=== PATIENT | male | born 1965 | race Two or more races ===

== ENCOUNTER 2022-05-13 17:55 | Inpatient (IN) | payer MEDICAID ==
[~2022-05-13] VITALS: Ht 167.6 cm; Wt 82.6 kg
[~2022-05-13 17:55] MED LIST: ACET-73 GT; ATEN25TA GT; BISA10SU8 RC; CHLO15MO2 MM; DOCU-270 GT; GUAI600T53 GT; HEPA500013 IJ; LEVE1000 GT; MAGN400O6 GT; METO-295 GT; NA P133E RC; SERT50TA GT
--- NOTE | 2022-05-13 18:06 | NUR ---
PRANAV FROM [facility], PER REPORT, "FEVER" +COVID TODAY. REQUESTING ANTI-VIRAL. TO ER BED 6, HOOKED TO MONITOR, NURSE EPIDEMIOLOGIST AT BEDSIDE. PATIENT WITH TRACH ON VENT WITH SETTINGS AC/VC, FiO2 40%, VT 550, RATE 14, PEEP 5. WITH O2 SAT OF 98%. COOLING MEASURES DONE. DR PARSONS AT BEDSIDE
--- NOTE | 2022-05-13 18:20 | NUR ---
RT Received pt with settings provided by transport RT. Current settings tolerated well. No SOB noted. Ambu bag+ back up trach at bedside. Will continue to monitor
--- NOTE | 2022-05-13 18:21 | NUR ---
MOVE SHEET SUBMITTED.
--- NOTE | 2022-05-13 18:22 | NUR ---
COVID SWAB DONE AND SENT TO LAB
[2022-05-13] MEDS ORDERED: ALBU2.5V13 IH (18:25)
[2022-05-13] MEDS ORDERED: ACET325T53 GT (18:25)
[2022-05-13] MEDS ORDERED: IPRA0.2S49 IH (18:25)
[2022-05-13] MEDS ORDERED: OMEG-166 GT (18:25)
[2022-05-13] MEDS ORDERED: LEVE500T20 GT (18:25)
[2022-05-13] MEDS ORDERED: SENN-261 GT (18:25)
[2022-05-13] MEDS ORDERED: CEFT1FRO2 IV (18:25)
[2022-05-13] MEDS ORDERED: BACL10TA GT (18:25)
[2022-05-13] MEDS ORDERED: ACETAMINOPHEN 650 MG/SUPP.RECT RC ONE ×2 (18:33→19:00)
--- NOTE | 2022-05-13 18:36 | NUR ---
TEACHER EMOTIONALLY IMPAIRED AT BEDSIDE
--- NOTE | 2022-05-13 18:45 | NUR ---
RT pt received on mechanical vent with current settings. AC 14 550 40% +5. trach, shiley 6 xlt. ambu bag at bedside. alarms on and audible. vent plugged in to red outlet. minimal secretions suctioned via trach. no sob. no resp distress.
--- NOTE | 2022-05-13 19:32 | NUR ---
RECEIVED REPORT FROM LUCÍA MANZANARES FOR JOSE
[2022-05-13 19:34] LABS: CALCIUM, SERUM 8.8 mg/dL (8.5-10.1); CREATININE 0.7 mg/dL (0.6-1.3); POTASSIUM 3.7 mmol/L (3.5-5.1)
[2022-05-13 19:46] LABS: ALBUMIN 2.6 g/dL (3.4-5.0); BILIRUBIN,TOTAL 0.2 mg/dL (0.2-1.0); TOTAL PROTEIN, SERUM 7.4 g/dL (6.4-8.2)
--- NOTE | 2022-05-13 19:46 | NUR ---
SPOKE WITH DR. DELACRUZ PT TO BE ADMITTED TO [facility].
--- NOTE | 2022-05-13 19:47 | NUR ---
[facility] CALLED SORTING COWS WORKER PAGED.
[2022-05-13 19:52] LABS: BASOPHILS % (AUTO) 0.3 % (0.0-2.0); EOSINOPHILS % (AUTO) 1.7 % (0.0-6.0); HEMATOCRIT 35 % (39-51); HEMOGLOBIN 11.5 g/dL (13.5-17.5); LYMPHOCYTES # (AUTO) 2.3 K/uL (0.8-4.8); LYMPHOCYTES % (AUTO) 16.8 % (20.0-44.0); MEAN CORPUSCULAR HGB CONC 33 g/dl (31.0-36.0); MEAN CORPUSCULAR VOLUME 84 fL (80-96); MONOCYTES # (AUTO) 1.6 K/uL (0.1-1.30); MONOCYTES % (AUTO) 11.7 % (2.0-12.0); NEUTROPHILS # (AUTO) 9.3 K/uL (1.8-8.9); NEUTROPHILS % (AUTO) 69.5 % (43.0-81.0); PLATELET COUNT (AUTO) 216 K/uL (150-450); RED BLOOD CELL COUNT(AUTO) 4.18 MIL/uL (4.5-6.0); WHITE BLOOD COUNT (AUTO) 13.4 K/uL (4.3-11.0)
[2022-05-13 19:53] LABS: C-REACTIVE PROTEIN 69.7 mg/dL (0.0-0.9)
--- NOTE | 2022-05-13 22:06 | NUR ---
ROOM 120
--- NOTE | 2022-05-13 22:12 | NUR ---
REPORT GIVEN TO LEIGHTON BAR FOR JOSE
[2022-05-13] MEDS ORDERED: ACETAMINOPHEN 650 MG/20.3 ML UDC GT PRN (22:30)
[2022-05-13] MEDS ORDERED: ALBUTEROL SULFATE 8 GM HFA.AER.AD IH PRN (22:30)
--- NOTE | 2022-05-13 23:50 | NUR ---
RT pt transferred to floor with no complications. ambu bag on stand by. vent plugged in to red outlet. alarms on and audible. no sob. no resp distress.
--- NOTE | 2022-05-13 23:50 | NUR ---
PT TRANSPORTED TO ROOM 120 ON NASCAR DRIVER PER ACLS IN STABLE CONDITION
[2022-05-14] MEDS ORDERED: AZITHROMYCIN 500 MG VIAL ONE (00:38)
[2022-05-14] MEDS: AZITHROMYCIN 500 MG in IV D5W 250 ML IV SCH ×2 (00:42→23:20)
[2022-05-14 01:00] VITALS: BP 105/67
--- NOTE | 2022-05-14 01:30 | NUR ---
RN Note Received a 56 year old male from ER. Patient is non-verbal, withdraws from touch. No distress noted. Patient is on ventilator with trach. Shiley 8, Vent settings: AC 14, TV 550, FIO2 40%, PEEP 5. Tolerating well O2 Saturation of 99 percent. HOB elevated 35 degrees. Skin is warm an dry to touch. Noted with peg tube, Clamped, no residual. site is dry, dressing intact. new order of indwelling perla catheter. noted and carried out with charge nurse. Right ac 20g PIV, patent and intact. Skin assessment done, wound pictures filed in chart. assisted with turning and repositioning. Bed low, in locked position, Call light within reach. Will continue to monitor.
[2022-05-14] MEDS ORDERED: MAGNESIUM HYDROXIDE 30 ML UDC GT PRN (03:00)
[2022-05-14] MEDS ORDERED: JEVITY 1.2 CAL 1,000 ML BOTTLE GT PRN (03:30)
[2022-05-14 04:00] VITALS: BP 102/83
[2022-05-14] MEDS ORDERED: CEFTRIAXONE 1 G in IV D5W 50 ML IV SCH (04:30)
[2022-05-14] MEDS ORDERED: ACETAMINOPHEN 160 MG/5 ML GT PRN (05:00)
--- NOTE | 2022-05-14 05:00 | NUR ---
RN note noted patient tugging on indwelling perla catheter. Noted with pink tinged urine. Noted with small amount of bright red blood oozing from penile gland. Switched perla statlock to left thigh. Patient unable to reach at this time. Cintia Aware.
[2022-05-14] MEDS: BACLOFEN (10 MG) 10 MG TABLET GT SCH ×3 (05:08→20:23)
[2022-05-14] MEDS ORDERED: ACETAMINOPHEN 650 MG/20.3 ML UDC GT PRN (05:30)
[2022-05-14] MEDS ORDERED: CEFTRIAXONE 1 G VIAL ONE (05:38)
[2022-05-14 06:53] LABS: BASOPHILS % (AUTO) 0.3 % (0.0-2.0); EOSINOPHILS % (AUTO) 2.4 % (0.0-6.0); HEMATOCRIT 33 % (39-51); LYMPHOCYTES # (AUTO) 1.7 K/uL (0.8-4.8); LYMPHOCYTES % (AUTO) 14.5 % (20.0-44.0); MEAN CORPUSCULAR HGB CONC 33 g/dl (31.0-36.0); MEAN CORPUSCULAR VOLUME 83 fL (80-96); MONOCYTES # (AUTO) 1.3 K/uL (0.1-1.30); MONOCYTES % (AUTO) 10.4 % (2.0-12.0); NEUTROPHILS # (AUTO) 8.7 K/uL (1.8-8.9); NEUTROPHILS % (AUTO) 72.4 % (43.0-81.0); PLATELET COUNT (AUTO) 213 K/uL (150-450); RED BLOOD CELL COUNT(AUTO) 4.04 MIL/uL (4.5-6.0)
[2022-05-14 07:00] LABS: ALBUMIN 2.5 g/dL (3.4-5.0); BILIRUBIN,TOTAL 0.3 mg/dL (0.2-1.0); CALCIUM, SERUM 8.6 mg/dL (8.5-10.1); CREATININE 0.5 mg/dL (0.6-1.3); POTASSIUM 3.5 mmol/L (3.5-5.1); TOTAL PROTEIN, SERUM 7.5 g/dL (6.4-8.2)
[2022-05-14 07:01] LABS: COLOR,URINE ORANGE (YELLOW); UGLUCOSE NEGATIVE (NEGATIVE)
[2022-05-14 07:02] LABS: BILIRUBIN,URINE MODERATE (NEGATIVE)
[2022-05-14 07:03] LABS: LEUKOCYTE ESTERASE ,URINE LARGE (NEGATIVE); NITRITE, URINE NEGATIVE (NEGATIVE); PH,URINE 6.5 (5.0-8.0); PROTEIN,URINE 4+ mg/dl (NEGATIVE); UROBILINOGEN,URINE 0.2 EU/dL (0.2)
[2022-05-14 07:31] LABS: BACTERIA,URINE None seen /HPF (None Seen); RBC,URINE TOO NUMEROUS TO COUN /HPF (0-2); SQUAMOUS EPITHELIAL CELL,UR None Seen /HPF (None Seen); WBC,URINE TOO NUMEROUS TO COUN /HPF (0-3)
--- NOTE | 2022-05-14 07:32 | NUR ---
RN OPENING NOTE RECEIVED PATIENT RESTING IN BED ON MECHANICAL VENTILATOR TACH #8, AC 14, TV 550, FiO2 40% AND PEEP 5. ON TELE MONITOR, MOURA CATH NOTED, G TUBE RUNNING, IV ACCESS ON R AC 20G. PENDING WOUND CARE CONSULT. SAFETY MEASURES IN PLACE.
[2022-05-14 08:00] VITALS: BP 98/62
[2022-05-14] MEDS: CHLORHEXIDINE GLUCONATE 15 ML UDC MM SCH ×2 (08:46→20:23)
[2022-05-14] MEDS: LEVETIRACETAM SOL (5 ML) 100 MG/ML UDC GT SCH ×2 (08:46→20:23)
[2022-05-14] MEDS: SERTRALINE HCL 50 MG TABLET GT SCH (08:47)
[2022-05-14] MEDS: SENNOSIDES 8.6 MG TABLET GT SCH (08:47)
[2022-05-14] MEDS: IPRATROPIUM NEB FS 0.5 MG/2.5 ML AMPUL.NEB IH SCH ×3 (09:05→19:18)
[2022-05-14] MEDS: ALBUTEROL FS 2.5 MG/0.5 ML VIAL.NEB IH SCH ×3 (09:05→19:18)
--- NOTE | 2022-05-14 09:59 | NUR ---
RN NOTE PATIENTS TUBE FEEDING INCREASED TO 65MLS/HR PER STATION INSTALLER.
[2022-05-14] MEDS: ENOXAPARIN SODIUM 40 MG/0.4 ML DISP.SYRIN SQ SCH (10:38)
--- NOTE | 2022-05-14 10:50 | NUR ---
PATIENT FOUND ON THE VENT WITH TRACH AJUSTED. BACK UP TRACH IN [place] NO DISTRESS NOTED . PATIENT TOLERATING SETTINGS WELL. Addendum: 05/14/22 at 1055 by TAURUS DELA CRUZ RT Amended: Links added.
--- NOTE | 2022-05-14 11:49 | NUR ---
TX IS ON HOLD FROM NOW DUE TO PATIENT BEEN COVID POSITIVE. Addendum: 05/14/22 at 1154 by TAURUS DELA CRUZ RT Amended: Links added.
[2022-05-14 12:00] VITALS: BP 95/53
--- NOTE | 2022-05-14 14:39 | NUR ---
PATIENT IS DISCHARGED. Addendum: 05/14/22 at 1439 by TAURUS DELA CRUZ RT Amended: Links added. Addendum: 05/14/22 at 1515 by TAURUS DELA CRUZ RT MISTAKE PATIENT IS COVID POSISTIVE NOT DISCHARGE
--- NOTE | 2022-05-14 15:16 | NUR ---
PATIENT IS COVID POSITIVE
[2022-05-14 16:00] VITALS: BP 99/63
--- NOTE | 2022-05-14 18:43 | NUR ---
RN CLOSING NOTE RECEIVED PATIENT RESTING IN BED ON MECHANICAL VENTILATOR TACH #8, AC 14, TV 550, FiO2 40% AND PEEP 5. NO CURRENT SIGNS OF DIASTRESS OR SOB.ON TELE MONITOR, MOURA CATH NOTED, G TUBE RUNNING JEVITY 65 MLS/HR, IV ACCESS ON R AC 20G SL. PENDING WOUND CARE CONSULT. SAFETY MEASURES IN PLACE. WILL ENDORSE TO NIGHT NURSE FOR JOSE.
--- NOTE | 2022-05-14 19:18 | NUR ---
rt note no aerosol tx given pt positive for covid.
--- NOTE | 2022-05-14 19:21 | NUR ---
RT NOTE PT RECVD ON ORDERED AC VENT SETTINGS AND MANPREET WELL. TRACH IS PATENT AND SECURED. SUCTION PRN, NEB TX NOT GIVEN PT POSITIVE FOR COVID. VENT PLUGGED INTO RED OUTLET WITH ALARMS ON AND AUDIBLE. NO S/S OF SOB OR RESPIRATORY DISTRESS NOTED.
--- NOTE | 2022-05-14 19:30 | NUR ---
RN OPENING NOTES RECEIVED PT IN BED, ASLEEP, OPENS EYES TO VERBAL AND TACTILE STIMULI. AOx1, OBTUNDED. ON MECHANICAL VENT AND TOLERATING WELL. NO SOB NOTED. NO S/SX OF RESPIRATORY DISTRESS NOTED. IV ACCESS IN RAC #18 G. IV IS INTACT, PATENT, AND FLUSHING WELL. G-TUBE IN PLACE RUNNING JEVITY @ 65 ML/HR. MOURA-CATHETER IN PLACE DRAINING YELLOW WITH BLOOD-TINGED URINE. SAFETY PRECAUTIONS IN PLACE: BED IN LOWEST, LOCKED POSITION, SIDERAILS UPx2, AND BRAKES ON. TABLE AND CALL LIGHT WITHIN REACH. WILL CONTINUE TO MONITOR.
[2022-05-14 20:00] VITALS: BP 130/79
[2022-05-14] MEDS ORDERED: MEROPENEM 500 MG VIAL IV ONE (20:19)
[2022-05-14] MEDS: MEROPENEM 500 MG in IV NS 0.9% 50 ML IV SCH (20:23)
[2022-05-14] MEDS: JEVITY 1.2 CAL 1,000 ML BOTTLE GT PRN (20:31)
[2022-05-15] VITALS: BP 137/66
[2022-05-15] MEDS: ALBUTEROL FS 2.5 MG/0.5 ML VIAL.NEB IH SCH ×5 (01:30→19:30)
[2022-05-15] MEDS: IPRATROPIUM NEB FS 0.5 MG/2.5 ML AMPUL.NEB IH SCH ×5 (01:30→19:30)
[2022-05-15] MEDS ORDERED: MEROPENEM 500 MG VIAL IV ONE (04:25)
[2022-05-15] MEDS: BACLOFEN (10 MG) 10 MG TABLET GT SCH ×3 (04:29→21:43)
[2022-05-15] MEDS: MEROPENEM 500 MG in IV NS 0.9% 50 ML IV SCH (04:30)
[2022-05-15 06:41] LABS: BASOPHILS % (AUTO) 0.3 % (0.0-2.0); EOSINOPHILS % (AUTO) 3.1 % (0.0-6.0); HEMATOCRIT 35 % (39-51); HEMOGLOBIN 11.3 g/dL (13.5-17.5); LYMPHOCYTES # (AUTO) 1.7 K/uL (0.8-4.8); MEAN CORPUSCULAR HGB CONC 32 g/dl (31.0-36.0); MEAN CORPUSCULAR VOLUME 84 fL (80-96); MONOCYTES # (AUTO) 0.7 K/uL (0.1-1.30); NEUTROPHILS # (AUTO) 6.2 K/uL (1.8-8.9); NEUTROPHILS % (AUTO) 69.6 % (43.0-81.0); PLATELET COUNT (AUTO) 224 K/uL (150-450); RED BLOOD CELL COUNT(AUTO) 4.17 MIL/uL (4.5-6.0)
[2022-05-15 07:05] LABS: CALCIUM, SERUM 8.6 mg/dL (8.5-10.1); CREATININE 0.6 mg/dL (0.6-1.3); MAGNESIUM 2.1 mg/dL (1.8-2.4); POTASSIUM 3.5 mmol/L (3.5-5.1)
--- NOTE | 2022-05-15 07:33 | NUR ---
RN OPENING NOTES: RECEIVED PATIENT IN BED, AWAKE, OBTUNDED. ON MECHANICAL VENT WITH SETTING OF AC # 14, TIDAL VOLUME OF 550, FI02 40% AND PEEP OF 5. NO RESPIRATORY DISTRESS NOTED, BREATHING EVEN AND UNLABORED. ON SR WITH HR OF 64. HAS IV ACCESS ON RAC # 18, ON SALINE LOCK, FLUSHING WELL, NOS S/S OF INFILTRATION NOTED. ON JEVITY 1.2 FEEDING VIA PEG @ 65 ML/HR, SITE CLEAN AND DRY, NO RESIDUAL, FLUSHING WELL, IN GOOD POSITION. HOB ELEVATED, BED LOCKED AND IN LOWEST POSITION, CALL LIGHT WITHIN REACH, SR UP. WILL POSITION FOR COMFORT AND WILL PROVIDE SKIN CARE [id number]. SAFETY MEASURES IN PLACE. WILL CONTINUE TO MONITOR THROUGHOUT SHIFT.
--- NOTE | 2022-05-15 07:51 | NUR ---
RN CLOSING NOTES REPORT GIVEN TO DAYSHIFT RN. PT STABLE. NO DISTRESS NOTED.
[2022-05-15 08:00] VITALS: BP 126/42
[2022-05-15] MEDS: CHLORHEXIDINE GLUCONATE 15 ML UDC MM SCH ×2 (09:20→21:44)
[2022-05-15] MEDS: SENNOSIDES 8.6 MG TABLET GT SCH (09:20)
[2022-05-15] MEDS: SERTRALINE HCL 50 MG TABLET GT SCH (09:20)
[2022-05-15] MEDS: LEVETIRACETAM SOL (5 ML) 100 MG/ML UDC GT SCH ×2 (09:20→21:43)
[2022-05-15] MEDS: ENOXAPARIN SODIUM 40 MG/0.4 ML DISP.SYRIN SQ SCH (09:52)
[2022-05-15 12:00] VITALS: BP 129/66
[2022-05-15] MEDS: MEROPENEM 1 G in IV NS 0.9% 100 ML IV SCH ×2 (12:20→21:44)
[2022-05-15] MEDS ORDERED: MEROPENEM 500 MG in IV NS 0.9% 50 ML IV SCH (13:00)
[2022-05-15 16:00] VITALS: BP 119/65
--- NOTE | 2022-05-15 18:41 | NUR ---
RN CLOSING NOTES: PATIENT IN BED, ASLEEP BUT AROUSES TO TACTILE STIMULI AND SOUND. PATIENT OBTUNDED. ON MECHANICAL VENT WITH SETTING ORDERED AC 14, TV 550, FI02 40%, PEEP 5. OXYGEN SATURATION AT 98%. NO S/S RESPIRATORY DISTRESS NOTED, BREATHING EVEN AND UNLABORED. ON SR WITH HR OF 68. SALINE LOCK ON RACC # 18 INTACT, FLUSHING WELL, NO S/S INFILTRATION. ON JEVITY 1.2 PEG TUBE FEEDING @ 65 ML/HR, NO RESIDUAL NOTED, CHECKED FOR GOOD PLACEMENT AND FLUSHES WELL. MOURA CATHETER INTACT, HAD 400 ML OF YELLOW MARLEN COLORED URINE, NO SEDIMENTATION NOTED. REPOSITIONED FOR COMFORT. [facility]
[2022-05-15 20:00] VITALS: BP 110/58
--- NOTE | 2022-05-15 20:40 | NUR ---
RT PT RECEIVED ON AC 14 550 40% +5. TOLERATING CURRENT SETTINGS WELL. NO RESP DISTRESS. NO BREATHING TX GIVEN ENDORSED BY [facility] RT. ALARMS ON AND AUDIBLE. VENT PLUGGED INTO RED OUTLET. AMBU BAG AT BEDSIDE. Addendum: 05/15/22 at 2041 by Arcenio Valles RT Amended: Links added.
[2022-05-15] MEDS: AZITHROMYCIN 500 MG in IV D5W 250 ML IV SCH (23:42)
[2022-05-16] VITALS: BP 110/55
[2022-05-16] MEDS: JEVITY 1.2 CAL 1,000 ML BOTTLE GT PRN (00:34)
[2022-05-16] MEDS: IPRATROPIUM NEB FS 0.5 MG/2.5 ML AMPUL.NEB IH SCH ×4 (01:30→19:30)
[2022-05-16] MEDS: ALBUTEROL FS 2.5 MG/0.5 ML VIAL.NEB IH SCH ×4 (01:30→19:30)
[2022-05-16 04:00] VITALS: BP 106/55
[2022-05-16] MEDS: BACLOFEN (10 MG) 10 MG TABLET GT SCH ×3 (05:02→21:44)
[2022-05-16] MEDS: MEROPENEM 1 G in IV NS 0.9% 100 ML IV SCH ×3 (05:02→21:44)
--- NOTE | 2022-05-16 06:50 | NUR ---
RN CLOSING NOTES: PATIENT IN BED, ASLEEP BUT EASILY AROUSABLE, OBTUNDED. ON TRACH TO MECHANICAL VENT SETTING AND PT TOLERATED WELL. AC 14, TV 550, FI02 40%, PEEP 5. O2 SAT 99%. BREATHING EVEN AND UNLABORED. IV ACCESS ON RAC # 18 INTACT AND PATENT. NO S/S INFILTRATION. ON JEVITY 1.2 PEG TUBE FEEDING @ 65 ML/HR AND PT TOLERATED WELL. MOURA CATHETER IN PLACE. RUNNING BY GRAVITY. NOTED MARLEN COLORED URINE. ALL DUE MEDS GIVEN ORDERED. ALL SAFETY MEASURES IN PLACE. BED IN LOWEST POSITION AND LOCKED. SIDE RAILS UP X3, PLACE CALL LIGHT WITH IN REACH. WILL ENDORSE TO MORNING SHIFT NURSE.
--- NOTE | 2022-05-16 07:30 | NUR ---
PT RECEIVED RESTING COMFORTABLY IN BED. NO S/S OR C/O PAIN OR DISTRESS NOTED. SIDE RAILS UP X2, CALL LIGHT LEFT WITHIN REACH. WILL CONTINUE PLAN OF CARE.
[2022-05-16 07:37] LABS: BASOPHILS % (AUTO) 0.4 % (0.0-2.0); EOSINOPHILS % (AUTO) 5.7 % (0.0-6.0); HEMATOCRIT 34 % (39-51); HEMOGLOBIN 10.9 g/dL (13.5-17.5); LYMPHOCYTES # (AUTO) 1.7 K/uL (0.8-4.8); LYMPHOCYTES % (AUTO) 22.1 % (20.0-44.0); MEAN CORPUSCULAR HGB CONC 33 g/dl (31.0-36.0); MEAN CORPUSCULAR VOLUME 84 fL (80-96); MONOCYTES # (AUTO) 0.8 K/uL (0.1-1.30); NEUTROPHILS # (AUTO) 4.9 K/uL (1.8-8.9); NEUTROPHILS % (AUTO) 61.8 % (43.0-81.0); PLATELET COUNT (AUTO) 231 K/uL (150-450); RED BLOOD CELL COUNT(AUTO) 3.98 MIL/uL (4.5-6.0); WHITE BLOOD COUNT (AUTO) 7.9 K/uL (4.3-11.0)
--- NOTE | 2022-05-16 07:46 | NUR ---
PATIENT IS COVID POSITIVE NO TX GIVEN. PATIENT IS STABLE ON THE VENT TOLERATING WELL WITH TRACH INTACT
[2022-05-16 08:00] VITALS: BP 101/55
[2022-05-16] MEDS: SENNOSIDES 8.6 MG TABLET GT SCH (08:34)
[2022-05-16] MEDS: SERTRALINE HCL 50 MG TABLET GT SCH (08:34)
[2022-05-16] MEDS: CHLORHEXIDINE GLUCONATE 15 ML UDC MM SCH ×2 (08:34→21:44)
[2022-05-16] MEDS: LEVETIRACETAM SOL (5 ML) 100 MG/ML UDC GT SCH ×2 (08:34→21:44)
[2022-05-16] MEDS: ENOXAPARIN SODIUM 40 MG/0.4 ML DISP.SYRIN SQ SCH (08:36)
[2022-05-16 08:38] LABS: CREATININE 0.6 mg/dL (0.6-1.3); MAGNESIUM 2.2 mg/dL (1.8-2.4); PHOSPHORUS 3.3 mg/dL (2.5-4.9); POTASSIUM 3.9 mmol/L (3.5-5.1)
--- NOTE | 2022-05-16 10:12 | NUR ---
PATIENT IS COVID POSITIVE WITH TRACH ADJUSTED AND INTACT NO REDNEES. PATIENT IS UNRESPONSIVE ON THE VENT TOLERATING SETTING WELL. Addendum: 05/16/22 at 1013 by TAURUS DELA CRUZ RT Amended: Links added.
[2022-05-16 12:00] VITALS: BP 103/57
[2022-05-16 16:00] VITALS: BP 114/75
--- NOTE | 2022-05-16 19:29 | NUR ---
CHANGE OF SHIFT REPORT PT RESTING COMFORTABLY IN BED. NO S/S OR C/O PAIN OR DISTRESS NOTED. SIDE RAILS UP X2, CALL [facility] T[facility] WITHIN REACH. PT KEPT CLEAN, DRY, AND COMFORTABLE. NO SIGNIFICANT CHANGES SINCE PREVIOUS SHIFT. REPORT GIVEN TO CHANCE MANZANARES.
--- NOTE | 2022-05-16 19:42 | NUR ---
RN OPENING NOTE PATIENT AWAKE IN BED. OBTUNDED. NO S/S OF DISTRESS, BREATHING W/O DIFFICULTY ON VENT. LFA #22 INTACT AND PATENT. TELE MONITOR REVEALS [id number]. SAFETY MEASURES IN PLACE: BED LOCKED AND AT LOWEST POSITION, RAILS UP X2, CALL [place] WITHIN REACH. WILL CONTINUE TO MONITOR THE PATIENT.
[2022-05-16 20:00] VITALS: BP 105/63
[2022-05-16] MEDS: HYDROGEL DRESSING 90 GM TUBE TP SCH (21:44)
[2022-05-16] MEDS: AZITHROMYCIN 500 MG in IV D5W 250 ML IV SCH (23:09)
[2022-05-17 00:39] VITALS: BP 106/67
[2022-05-17] MEDS: ALBUTEROL FS 2.5 MG/0.5 ML VIAL.NEB IH SCH ×4 (01:30→19:30)
[2022-05-17] MEDS: IPRATROPIUM NEB FS 0.5 MG/2.5 ML AMPUL.NEB IH SCH ×4 (01:30→19:30)
[2022-05-17 04:00] VITALS: BP 112/63
[2022-05-17] MEDS: MEROPENEM 1 G in IV NS 0.9% 100 ML IV SCH ×2 (05:34→13:30)
[2022-05-17] MEDS: BACLOFEN (10 MG) 10 MG TABLET GT SCH ×3 (05:35→22:10)
--- NOTE | 2022-05-17 06:56 | NUR ---
RN CLOSING NOTE PATIENT AWAKE IN BED. OBTUNDED. NO S/S OF DISTRESS, BREATHING W/O DIFFICULTY ON MECHANICAL VENT. LFA #22 SL INTACT AND PATENT. TELE MONITOR REVEALS SR64. SAFETY MEASURES IN PLACE: BED LOCKED & AT LOWEST POSITION, RAILS UP X2, CALL RAYGO[place] WITHIN REACH. WILL ENDORSE TO NEXT SHIFT FOR JOSE.
[2022-05-17 07:07] LABS: BASOPHILS % (AUTO) 0.5 % (0.0-2.0); EOSINOPHILS % (AUTO) 7.3 % (0.0-6.0); HEMATOCRIT 34 % (39-51); HEMOGLOBIN 11.1 g/dL (13.5-17.5); LYMPHOCYTES # (AUTO) 1.5 K/uL (0.8-4.8); LYMPHOCYTES % (AUTO) 19.6 % (20.0-44.0); MEAN CORPUSCULAR HGB CONC 33 g/dl (31.0-36.0); MEAN CORPUSCULAR VOLUME 84 fL (80-96); MONOCYTES # (AUTO) 0.8 K/uL (0.1-1.30); MONOCYTES % (AUTO) 10.7 % (2.0-12.0); NEUTROPHILS # (AUTO) 4.7 K/uL (1.8-8.9); NEUTROPHILS % (AUTO) 61.9 % (43.0-81.0); PLATELET COUNT (AUTO) 264 K/uL (150-450); RED BLOOD CELL COUNT(AUTO) 4.07 MIL/uL (4.5-6.0); WHITE BLOOD COUNT (AUTO) 7.5 K/uL (4.3-11.0)
--- NOTE | 2022-05-17 07:54 | NUR ---
RN OPENING NOTE PATIENT RECEIVED IN BED. OBTUNDED. NO S/S OF DISTRESS, TRACH IN PLACE WITH VENT SETTINGS TOLERATED WELL. LFA #22 INTACT AND PATENT. WITH TELE MONITOR READING SB 59. SAFETY MEASURES IN PLACE. WILL CONTINUE TO MONITOR THE PATIENT.
[2022-05-17 08:00] VITALS: BP 99/63
[2022-05-17 08:10] LABS: CALCIUM, SERUM 8.6 mg/dL (8.5-10.1); CREATININE 0.6 mg/dL (0.6-1.3); MAGNESIUM 2.2 mg/dL (1.8-2.4); PHOSPHORUS 2.9 mg/dL (2.5-4.9); POTASSIUM 3.9 mmol/L (3.5-5.1)
[2022-05-17] MEDS: CHLORHEXIDINE GLUCONATE 15 ML UDC MM SCH ×2 (09:30→22:10)
[2022-05-17] MEDS: SERTRALINE HCL 50 MG TABLET GT SCH (09:30)
[2022-05-17] MEDS: LEVETIRACETAM SOL (5 ML) 100 MG/ML UDC GT SCH ×2 (09:30→22:10)
[2022-05-17] MEDS: SENNOSIDES 8.6 MG TABLET GT SCH (09:30)
[2022-05-17] MEDS: ENOXAPARIN SODIUM 40 MG/0.4 ML DISP.SYRIN SQ SCH (09:31)
[2022-05-17] MEDS: HYDROGEL DRESSING 90 GM TUBE TP SCH (09:50)
[2022-05-17 12:00] VITALS: BP 115/70
[2022-05-17] MEDS ORDERED: GLUCERNA 1.2 1,000 ML BOTTLE GT PRN ×3 (13:00→17:00)
[2022-05-17 16:00] VITALS: BP 120/68
--- NOTE | 2022-05-17 19:30 | NUR ---
DURALUMIN MECHANIC OPENING NOTE RECEIVED PATIENT IN BED, AWAKE. PT IS OBTUNDED AND NON VERBAL. NO S/S OF ACUTE DISTRESS NOTED AT THIS TIME. [facility], TOLERATING SETTINGS WELL. TELE MONITOR SHOWS SB. IV ACCESS NOTED IN LFA #22G, INTACT AND PATENT. GTF IN PLACE RUNNING JEVITY AT 65 CC/HR. ALL SAFETY MEASURES IN PLACE: BED LOCKED IN LOWEST POSITION, RAILS UP X2, CALL LIGHT WITHIN REACH. WILL CONTINUE TO MONITOR THE PATIENT.
[2022-05-17 20:00] VITALS: BP 108/73
[2022-05-17] MEDS: AZITHROMYCIN 500 MG in IV D5W 250 ML IV SCH (22:10)
[2022-05-18] VITALS: BP 105/62
[2022-05-18] MEDS: ALBUTEROL FS 2.5 MG/0.5 ML VIAL.NEB IH SCH ×3 (01:30→13:30)
[2022-05-18] MEDS: IPRATROPIUM NEB FS 0.5 MG/2.5 ML AMPUL.NEB IH SCH ×3 (01:30→13:30)
[2022-05-18 04:00] VITALS: BP 96/52
[2022-05-18] MEDS: BACLOFEN (10 MG) 10 MG TABLET GT SCH ×2 (04:16→13:20)
--- NOTE | 2022-05-18 06:25 | NUR ---
CARTOON ARTIST CLOSING NOTE NO SIGNIFICANT CHANGE THROUGHOUT THE SHIFT. TELE MONITOR SHOWS SB WITH HR IN 50S. PT SHOWS NO SIGNS OF ACUTE DISTRESS. ALL DUE MEDS GIVEN. NEEDS ATTENDED TO. WILL ENDORSE TO AM SHIFT NURSE FOR JOSE.
[2022-05-18 07:01] LABS: BASOPHILS # (AUTO) 0.1 K/uL (0.0-0.2); BASOPHILS % (AUTO) 0.7 % (0.0-2.0); EOSINOPHILS % (AUTO) 6.7 % (0.0-6.0); HEMATOCRIT 33 % (39-51); HEMOGLOBIN 10.8 g/dL (13.5-17.5); LYMPHOCYTES # (AUTO) 1.9 K/uL (0.8-4.8); LYMPHOCYTES % (AUTO) 21.6 % (20.0-44.0); MEAN CORPUSCULAR HGB CONC 33 g/dl (31.0-36.0); MEAN CORPUSCULAR VOLUME 83 fL (80-96); MONOCYTES % (AUTO) 11.5 % (2.0-12.0); NEUTROPHILS # (AUTO) 5.2 K/uL (1.8-8.9); NEUTROPHILS % (AUTO) 59.5 % (43.0-81.0); PLATELET COUNT (AUTO) 284 K/uL (150-450); RED BLOOD CELL COUNT(AUTO) 3.95 MIL/uL (4.5-6.0); WHITE BLOOD COUNT (AUTO) 8.7 K/uL (4.3-11.0)
--- NOTE | 2022-05-18 07:25 | NUR ---
RN/TELE OPENING NOTE, PATIENT AWAKE A&OX0 NON VERBAL BUT OPENS EYES. ALL VSS. PATIENT SATTING AT 99% ON VENT AC MODE RATE OF 14, TV 550, FIO2 40%, PEEP 5. VOIDING VIA MOURA CATHETER. DIET GLUCERNA 1.2 @ 65ML/HR. IV LFA #22G PATENT AND INTACT, ALL SAFETY FALL PRECAUTIONS IN PLACE BED LOCK ON, BED IN LOWEST POSITION, BED ALARM ON, SIDE RAILS UP, CALL LIGHT WITHIN REACH. WILL CONTINUE TO MONITOR.
[2022-05-18 07:33] LABS: CALCIUM, SERUM 8.4 mg/dL (8.5-10.1); CREATININE 0.6 mg/dL (0.6-1.3); MAGNESIUM 2.2 mg/dL (1.8-2.4); POTASSIUM 4.1 mmol/L (3.5-5.1)
[2022-05-18 08:00] VITALS: BP 106/62
[2022-05-18] MEDS: SENNOSIDES 8.6 MG TABLET GT SCH (08:25)
[2022-05-18] MEDS: SERTRALINE HCL 50 MG TABLET GT SCH (08:25)
[2022-05-18] MEDS: LEVETIRACETAM SOL (5 ML) 100 MG/ML UDC GT SCH (08:25)
[2022-05-18] MEDS: CHLORHEXIDINE GLUCONATE 15 ML UDC MM SCH (08:26)
[2022-05-18] MEDS: HYDROGEL DRESSING 90 GM TUBE TP SCH (08:27)
[2022-05-18] MEDS: ENOXAPARIN SODIUM 40 MG/0.4 ML DISP.SYRIN SQ SCH (08:27)
--- NOTE | 2022-05-18 12:10 | NUR ---
RN/TELE NOTE PATIENT'S FAMILY MEMBER CALLED I RETURNED THE CALL AND LEFT A MESSAGE.
--- NOTE | 2022-05-18 12:23 | NUR ---
RN/TELE NOTE REPORT GIVEN TO DAVONTE AT [facility]. PATIENT STABLE FOR TRANSFER. ALL PATIENT INFORMATION GIVEN IN REPORT CURRENT AND PAST HX., VENT SETTINGS,SR, VOIDING, LABS, DIET, INSTRUCTIONS, AND MED RECONCILIATION. ALL QUESTIONS ANSWERED.
--- NOTE | 2022-05-18 15:22 | NUR ---
PAMPHLET DISTRIBUTOR NOTE, PATIENT [facility] TO [facility] WITH AMBULANCE AND AN RN. PATIENT WAS CLEANED PRIOR TO DEPARTURE, IV WAS REMOVED, BAND WAS REMOVED. PATIENT WAS STABLE NO SIGNS OF DISTRESS. INSTRUCTIONS AND MED RECONCILIATION GIVEN. REPORT GIVEN THE [facility] ALREADY.
== END 2022-05-18 15:17 | DRG 130 ==
LOC: ER 18:06 → TELE1 22:24
PROVIDERS: ADMIT Nurse Practitioner Acute Care
PROC: 5A1955Z Respiratory Ventilation, Greater than 96 Consecutive Hours (ICD-10-PCS; principal; 2022-05-13)
DX: U07.1 COVID-19 (principal); J12.82 Pneumonia due to coronavirus disease 2019; R40.3 Persistent vegetative state; L89.153 Pressure ulcer of sacral region, stage 3; E44.0 Moderate protein-calorie malnutrition; G93.1 Anoxic brain damage, not elsewhere classified; D68.69 Other thrombophilia; J15.9 Unspecified bacterial pneumonia; J96.10 Chronic respiratory failure, unspecified whether with hypoxia or hypercapnia; Z93.0 Tracheostomy status; E88.09 Other disorders of plasma-protein metabolism, not elsewhere classified; Z99.11 Dependence on respirator [ventilator] status; Z93.1 Gastrostomy status; R13.10 Dysphagia, unspecified; G40.909 Epilepsy, unspecified, not intractable, without status epilepticus; K21.9 Gastro-esophageal reflux disease without esophagitis; D64.9 Anemia, unspecified; Z86.73 Personal history of transient ischemic attack (TIA), and cerebral infarction without residual deficits; Z87.820 Personal history of traumatic brain injury; Z74.09 Other reduced mobility; Z68.29 Body mass index [BMI] 29.0-29.9, adult; I73.9 Peripheral vascular disease, unspecified; I10 Essential (primary) hypertension; D72.829 Elevated white blood cell count, unspecified; J98.11 Atelectasis
CPT/HCPCS: 31720; 36415; 71045-TC; 80048-TC; 80053-TC; 81001; 82550-TC; 82728-TC; 83605-TC; 83615-TC; 83735-TC; 83880; 84100-TC; 85025-TC; 85378-TC; 85730-TC; 86140-TC; 87081-TC; 87086-TC; 94003-TC; 94760-TC; 94762-TC; 94799-TC; A4623; A6248; A7526; C9803; G0378; J0456; J0696; J1650; J1953; J2185; J7030; J7050; J7060; U0003